=== PATIENT | male | born 1945 | race Caucasian/White ===

== ENCOUNTER 2016-05-22 12:21 | Outpatient (CLI) | payer BC ==
[2016-05-22 14:28] LABS: Anion Gap 16 mmol/L (10-20); BUN (Urea Nitrogen) 32 mg/dL (8.4-25.7); Calc. Creatinine Clearance 0 mL/min (70-130); Carbon Dioxide 24 mmol/L (23-31); Chloride 103 mmol/L (98-107); Estimated GFR-MDRD 27
[2016-05-22 15:24] LABS: Hemoglobin A1c 8.2 % (4.0-6.0)
== END 2016-05-22 12:22 ==
LOC: NAVSJIPCSP 12:21
PROVIDERS: ATTEND Internal Medicine
DX: I12.9 Hypertensive chronic kidney disease with stage 1 through stage 4 chronic kidney disease, or unspecified chronic kidney disease (principal); N18.4 Chronic kidney disease, stage 4 (severe); I48.91 Unspecified atrial fibrillation
CPT/HCPCS: 36415; 80048; 83036; 83880; 85610

== ENCOUNTER 2016-06-13 15:25 | Outpatient (CLI) | payer BC ==
[2016-06-13 15:55] LABS: Prothrombin Time 29.7 SEC (12.0-14.7)
== END 2016-06-13 15:26 | disposition home or self-care (01) ==
LOC: NAV LABSP 15:25
PROVIDERS: ATTEND Internal Medicine
DX: I13.0 Hypertensive heart and chronic kidney disease with heart failure and stage 1 through stage 4 chronic kidney disease, or unspecified chronic kidney disease (principal); I50.22 Chronic systolic (congestive) heart failure; Z79.01 Long term (current) use of anticoagulants
CPT/HCPCS: 85610; 85730

== ENCOUNTER 2016-07-11 13:59 | Outpatient (CLI) | payer BC ==
[2016-07-11 14:45] LABS: PTT 36.7 SEC (22.9-36.1); Prothrombin Time 27.8 SEC (12.0-14.7)
== END 2016-07-11 14:00 | disposition home or self-care (01) ==
LOC: NAV LABSP 13:59
PROVIDERS: ATTEND Internal Medicine
DX: I13.0 Hypertensive heart and chronic kidney disease with heart failure and stage 1 through stage 4 chronic kidney disease, or unspecified chronic kidney disease (principal); I50.22 Chronic systolic (congestive) heart failure
CPT/HCPCS: 85610; 85730

== ENCOUNTER 2016-07-24 13:28 | Outpatient (CLI) | payer BC ==
[2016-07-24 14:20] LABS: Hemoglobin A1c 8.3 % (4.0-6.0)
[2016-07-24 14:25] LABS: Prothrombin Time 23.4 SEC (12.0-14.7)
[2016-07-24 14:28] LABS: Anion Gap 15 mmol/L (10-20); BUN (Urea Nitrogen) 22 mg/dL (8.4-25.7); Calc. Creatinine Clearance 0 mL/min (70-130); Carbon Dioxide 28 mmol/L (23-31); Chloride 103 mmol/L (98-107); Estimated GFR-MDRD 29
== END 2016-07-24 13:29 | disposition home or self-care (01) ==
LOC: NAVSJIPCSP 13:28 → NAV LAB 13:29
PROVIDERS: ATTEND Internal Medicine
DX: I48.91 Unspecified atrial fibrillation (principal); I12.9 Hypertensive chronic kidney disease with stage 1 through stage 4 chronic kidney disease, or unspecified chronic kidney disease; N18.4 Chronic kidney disease, stage 4 (severe)
CPT/HCPCS: 80048; 83036; 83880; 85610

== ENCOUNTER 2016-08-30 11:48 | Outpatient (CLI) | payer BC ==
[2016-08-30 12:57] LABS: INR-International Normal Ratio 2.3; Prothrombin Time 26.4 SEC (12.0-14.7)
[2016-08-30 13:05] LABS: Anion Gap 17 mmol/L (10-20); BUN (Urea Nitrogen) 31 mg/dL (8.4-25.7); Calc. Creatinine Clearance 0 mL/min (70-130); Calcium 8.9 mg/dL (7.8-10.44); Carbon Dioxide 24 mmol/L (23-31); Chloride 105 mmol/L (98-107); Estimated GFR-MDRD 27; Glucose 200 mg/dL (83-110); Potassium 4.8 mmol/L (3.5-5.1); Sodium 141 mmol/L (136-145)
== END 2016-08-30 11:49 | disposition home or self-care (01) ==
LOC: NAVSJIPCSP 11:48
PROVIDERS: ATTEND Internal Medicine
DX: E11.22 Type 2 diabetes mellitus with diabetic chronic kidney disease (principal); N18.4 Chronic kidney disease, stage 4 (severe); I48.91 Unspecified atrial fibrillation; K21.9 Gastro-esophageal reflux disease without esophagitis
CPT/HCPCS: 36415; 80048; 83036; 85610

== ENCOUNTER 2016-09-20 12:29 | Outpatient (CLI) | payer BC ==
[2016-09-20 13:22] LABS: INR-International Normal Ratio 2.2; Prothrombin Time 25.5 SEC (12.0-14.7)
== END 2016-09-20 12:30 | disposition home or self-care (01) ==
LOC: NAV LAB 12:29
PROVIDERS: ATTEND Internal Medicine
DX: I48.91 Unspecified atrial fibrillation (principal)
CPT/HCPCS: 36415; 85610

== ENCOUNTER 2016-11-28 13:34 | Outpatient (CLI) | payer MEDICARE, BC ==
[2016-11-28 14:04] LABS: INR-International Normal Ratio 2.7
[2016-11-28 14:11] LABS: Anion Gap 17 mmol/L (10-20); BUN (Urea Nitrogen) 25 mg/dL (8.4-25.7); Calc. Creatinine Clearance 0 mL/min (70-130); Calcium 8.9 mg/dL (7.8-10.44); Carbon Dioxide 26 mmol/L (23-31); Chloride 100 mmol/L (98-107); Estimated GFR-MDRD 33; Glucose 226 mg/dL (83-110); Potassium 4.8 mmol/L (3.5-5.1); Sodium 138 mmol/L (136-145)
--- NOTE | 2016-11-28 16:14 | RAD ---
PA AND LATERAL CHEST: Date: 11-28-16 History: Atrial fibrillation. FINDINGS: Compared to study on 08-04-15. There is a multi-lead left subclavian AICD device again noted in place, again with transthoracic wendy d seen laterally. Cardiac silhouette remains enlarged. Pulmonary vasculature is within normal limits . Lungs remain clear. There has been no interval change when compared to the prior exam. IMPRESSION: No acute cardiopulmonary process. POS: BRET
== END 2016-11-28 13:35 | disposition home or self-care (01) ==
LOC: NAV RAD 13:34
PROVIDERS: ATTEND Internal Medicine
DX: I48.91 Unspecified atrial fibrillation (principal); N18.4 Chronic kidney disease, stage 4 (severe)
CPT/HCPCS: 36415; 71020; 80048; 83880; 85610

== ENCOUNTER 2017-01-24 11:22 | Outpatient (CLI) | payer BC, MEDICARE ==
[2017-01-24 12:37] LABS: Hemoglobin A1c 8.6 % (4.0-6.0)
[2017-01-24 12:59] LABS: Anion Gap 17 mmol/L (10-20); BUN (Urea Nitrogen) 25 mg/dL (8.4-25.7); Calc. Creatinine Clearance 0 mL/min (70-130); Calcium 8.8 mg/dL (7.8-10.44); Carbon Dioxide 25 mmol/L (23-31); Chloride 102 mmol/L (98-107); Estimated GFR-MDRD 33; Glucose 281 mg/dL (83-110); Potassium 4.9 mmol/L (3.5-5.1); Sodium 139 mmol/L (136-145)
== END 2017-01-24 11:23 | disposition home or self-care (01) ==
LOC: NAVSJIPCSP 11:22
PROVIDERS: ATTEND Internal Medicine
DX: E11.22 Type 2 diabetes mellitus with diabetic chronic kidney disease (principal); N18.4 Chronic kidney disease, stage 4 (severe); I48.91 Unspecified atrial fibrillation; I50.22 Chronic systolic (congestive) heart failure
CPT/HCPCS: 36415; 80048; 83036; 83880

== ENCOUNTER 2017-09-30 17:52 | Inpatient (IN) | payer MEDICARE, BC ==
[2017-09-30] MEDS ORDERED: Acetaminophen 325 MG TAB PO PRN (20:20)
[2017-09-30] MEDS ORDERED: Furosemide 40 MG TAB PO SCH (21:00)
[2017-09-30] MEDS ORDERED: Insulin Glargine 100 UNIT/ML 3 ML PEN SQ SCH (21:00)
[2017-09-30] MEDS ORDERED: Warfarin Sodium 3 MG TAB PO SCH (21:15)
[2017-09-30] MEDS: Ferrous Sulfate 325 MG TAB PO SCH (21:18)
[2017-09-30] MEDS: Simvastatin 40 MG TAB PO SCH (21:18)
[2017-09-30] MEDS: Carvedilol 3.125 MG TAB PO SCH (21:18)
[2017-09-30] MEDS ORDERED: Mometasone/Formoterol 60 PUFF AER INH SCH (22:00)
[2017-09-30] MEDS ORDERED: Levemir Flexpen 100 UNITS/ML PEN SC SCH (22:00)
[2017-10-01] MEDS: traMADol HCl 50 MG TAB PO PRN (03:06)
[2017-10-01 05:22] LABS: #Basophils 0.1 thou/uL (0.0-0.2); #Eosinphils 0.3 thou/uL (0.0-0.7); #Lymphocytes 1.3 thou/uL (1.20-3.40); #Monocytes 1.3 thou/uL (0.11-0.59); #Neutrophils 7.2 thou/uL (1.40-6.50); %Basophils 0.6 % (0.0-1.0); %Eosinophils 2.5 % (0.0-10.0); %Monocytes 12.7 % (0.0-10.0); %Neutrophils 71.2 % (42.0-75.0); Hemoglobin 8.4 g/dL (14.0-18.0); Mean Corpuscular Hemoglobin 28.6 pg (27.0-31.0); Mean Corpuscular Volume 92.2 fl (80.0-94.0); Platelet Count 260 thou/uL (130-400); RBC Distribution Width 17.1 % (11.5-14.5); Red Blood Cell (RBC) Count 2.95 mill/uL (4.70-6.10); White Blood Cell (WBC) Count 10.1 thou/uL (4.8-10.8)
[2017-10-01 05:31] LABS: INR-International Normal Ratio 1.9; Prothrombin Time 22.5 SEC (12.0-14.7)
[2017-10-01 05:41] LABS: ALT (SGPT) 11 U/L (8-55); AST (SGOT) 10 U/L (5-34); Alkaline Phosphatase 87 U/L (40-150); Anion Gap 12 mmol/L (10-20); BUN (Urea Nitrogen) 38 mg/dL (8.4-25.7); Bilirubin, Total 1.7 mg/dL (0.2-1.2); Calc. Creatinine Clearance 58 mL/min (70-130); Calcium 8.7 mg/dL (7.8-10.44); Carbon Dioxide 33 mmol/L (23-31); Chloride 90 mmol/L (98-107); Estimated GFR-MDRD 39; Globulin 2.5 g/dL (2.4-3.5); Glucose 178 mg/dL (83-110); Potassium 4.6 mmol/L (3.5-5.1); Protein, Total 5.5 g/dL (5.8-8.1); Sodium 130 mmol/L (136-145)
[2017-10-01] MEDS: Mometasone/Formoterol 60 PUFF AER INH SCH ×2 (06:20→18:20)
[2017-10-01] MEDS ORDERED: Dextrose 50% Abboject 50 ML SYRINGE SLOW IVP PRN (06:24)
[2017-10-01] MEDS ORDERED: Dextrose 5% in Water 1,000 ML IV PRN (06:24)
[2017-10-01] MEDS ORDERED: Bisacodyl 10 MG SUPP PR PRN (07:14)
[2017-10-01] MEDS: Furosemide 40 MG TAB PO SCH ×2 (09:00→13:32)
[2017-10-01] MEDS: Polyethylene Glycol 3350 17 GM Packet PO SCH (09:00)
[2017-10-01] MEDS: Ferrous Sulfate 325 MG TAB PO SCH ×2 (09:00→20:23)
[2017-10-01] MEDS: Docusate Calcium (SURFAK) 240 MG CAP PO SCH ×2 (09:00→20:23)
[2017-10-01] MEDS: Carvedilol 3.125 MG TAB PO SCH ×2 (09:00→20:22)
[2017-10-01] MEDS: Lisinopril 5 MG TAB PO SCH (09:01)
[2017-10-01] MEDS: Amiodarone 200 MG TAB PO SCH (09:01)
--- NOTE | 2017-10-01 11:36 | HP ---
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 He has been poor ly controlled as mentioned above at home secondary to noncompliance to his salt and sugar intake and questionably to his medication. He subsequently has developed a recurrent admission to the hospital for exacerbation of congestive heart failure, and most recently, was admitted to [facility] on 09/23/2017 with severe weakness and shortness of breath, was found to be in signific ant heart failure, was seen by Cardiology after being admitted to the residency program, was felt to require possibly a benefit from resynchronization of his cardiac rhythm. He does have an ICD in [facility], and in fact, this was discharged prior to this admission for the first time, found to be due to ve ntricular tachycardia when evaluated by the executive search consultant. He was therefore started back on tx s amiodarone, but then recommended to have AV node ablation and a biventricular pacemaker placed for resynchronization. This was done and he initially felt slightly better. He was ambulating in the [facility], but then did have an exacerbation of his CHF, requiring increased Lasix. He, therefore, has felt that he is not stable to be discharged home and the student financial aid manager has agreed, and therefore, he has b een transferred to [facility] SN[facility] for continued PT and OT while monitoring his cardiac rehabil itation. He did have a complication of acute drop in his hemoglobin after his catheterization, but d id not show any hematomas on femoral ultrasound. Occult blood in his stool was not done as far as I can see because of constipation. His poorly controlled diabetes was aggressively treated with aggres sive sliding scale plus increase in his routine insulin and he was discharged back to the [facility] skilled unit on 70 units of Lantus nightly, lisinopril two and a half daily, simvastatin 80 ni ghtly, aspirin 81 daily, warfarin 3 mg daily, carvedilol 3.125 twice daily, amiodarone 200 daily, nichelle asif sulfate 324 mg twice daily, Symbicort inhaler 80/4.5 one puff twice daily, handheld nebulizer wi th DuoNeb 4 times daily, Protonix 40 daily, and furosemide 40 mg twice daily. PAST MEDICAL HISTORY: As mentioned above is remarkable for the above-mentioned ischemic cardiomyopat hy, subsequent congestive heart failure, poorly controlled diabetes. He has had a myocardial infarct ion greater than 10 years ago with subsequent development of his systolic heart failure. He has not had coronary bypass, but did have stents. He has the above-mentioned history of diabetes and hyperte nsion, but also has COPD and has continued to smoke. Hyperlipidemia. PAST SURGICAL HISTORY: Positive for appendectomy, the above-mentioned defibrillator placement, bilat eral cataract surgery. SOCIAL HISTORY: He lives with his of many years. He is a nondrinker, but does smoke a pack a d ay and has for 60 years. FAMILY MEDICAL HISTORY: Noncontributory. REVIEW OF SYSTEMS: HEENT: Denies any headaches, dizziness, change in vision or hearing, hoarseness, or dysphagia. Pulmonary: Denies cough or sputum production. He has had pneumonia in the past, but has no wheezing or shortness of breath at rest at this time. Cardiovascular: See history of presen t illness. He has no chest pain at this time. No palpitations, but did not have any palpitations pr ior to the syncopal episode of ventricular tachycardia prior to this admission. He does have 2-meri w orthopnea. Does have only 1-2+ edema. He has no claudication. Gastrointestinal: He denies nause a, vomiting, or diarrhea. He had some constipation. He has had no melena. Genitourinary: Denies d ysuria, hematuria, nocturia. Musculoskeletal: Denies stiffness or swelling in his joints. Extremit ies: Does have stage 2 decubitus on his heels, being followed by Wound. Neurologic: He denies loca lized numbness or tingling in his arms or extremities. Has had the above-mentioned syncopal episode, but no previous episodes prior to this. Psychological: Denies anxiety and depression. PHYSICAL EXAMINATION: VITAL SIGNS: At this time, show him to have temperature 97.3, pulse 69, respirations 20, O2 sats 96% on 1 liter, was 90% on room air prior to discharge. Blood pressure is 110/57. HEENT: Pupils are equal, round, and reactive to light and accommodation. Sclerae are pale, Conjunct ivae pale. Oral mucous membranes well hydrated. NECK: Supple, no nodes or masses. JVP is not elevated. LUNGS: Show decreased breath sounds in the bases. No rales or rhonchi. CARDIAC EXAMINATION: Regular rhythm. Has an S4. Pacemaker is in place. No murmurs. ABDOMEN: Soft, nontender with no masses or organomegaly. SKIN/EXTREMITIES: Show trace to 1+ edema. No clubbing or cyanosis. There are 2 decubitus on the le ft foot, which are bandaged. NEUROLOGICAL: Cranial nerves intact. Deep tendon reflexes 2+ equal, absent Babinski. LABORATORY DATA: Shows white count 10,100, hematocrit 27, hemoglobin 8.4. PT 22.5, INR 1.9. Sodium 130, potassium 4.6, chloride 90, bicarbonate 33, BUN 38, creatinine 1.72. Accu-Cheks range from 88- 54, albumin is 3.0, globulin 2.5. ASSESSMENT: A 72-year-old white male with, 1. History of ischemic cardiomyopathy with recent exacerbation of congestive heart failure and an ep isode of ventricular tachycardia with discharge of his defibrillator. He has had AV john ablation a nd biventricular pacemaker placed for recent presentation and has been diuresed, but is still very we ak and has had an episode recently of an exacerbation of sort of congestive heart failure prior to [facility], and therefore was transferred to the [facility] unit for continued PT/OT, as he is barely ab le to walk several steps while monitoring his cardiac rehabilitation. He will be continued on his me dications of amiodarone 200 daily, carvedilol 3.125 twice daily, furosemide 40 twice daily, lisinopri l 2-1/2 daily and warfarin 3 mg daily for underlying atrial fibrillation. 2. Atrial fibrillation with rate control, AV john ablation and pacemaker and anticoagulation with w arfarin. 3. Type 2 diabetes, poorly controlled recently, now on increased dose of Lantus and sliding scale, a nd we will attempt to wean off sliding scale, maintain on routine doses prior to discharge. 4. Coronary artery disease with no evidence of acute ischemia. This admission only demand ischemia and no intervention. 5. Severe deconditioning, in need of therapy and we will monitor closely during PT and OT. The travis ent is not to be intubated at his request and we will discuss again with family and patient. 6. Recurrent anemia. We will do stool guaiac. There is no significant hematoma post-catheterizatio n and maybe underlying GI bleeding.
[2017-10-01] MEDS: HumaLOG 300 UNITS/3 ML VIAL SC PRN ×2 (11:47→16:44)
--- NOTE | 2017-10-01 14:04 | RAD ---
AP CHEST: Date: 10-01-17 Comparison: 09-28-17 History: New onset shortness of breath, congestive heart failure. FINDINGS: There is a dual-lead intracardiac defibrillator. Cardiomegaly is seen. Pulmonary vascular congestion is seen. No significant interval change is seen since the previous exam from 09-28-17. IMPRESSION: Cardiomegaly and pulmonary vascular congestion. Findings compatible with congestive heart failure. POS: BRET
[2017-10-01] MEDS: Warfarin Sodium 3 MG TAB PO SCH (16:44)
[2017-10-01] MEDS: Simvastatin 40 MG TAB PO SCH (20:23)
[2017-10-01] MEDS: Levemir Flexpen 100 UNITS/ML PEN SC SCH (20:23)
[2017-10-02 05:35] LABS: INR-International Normal Ratio 2.3; Prothrombin Time 25.8 SEC (12.0-14.7)
[2017-10-02] MEDS: HumaLOG 300 UNITS/3 ML VIAL SC PRN ×3 (06:03→17:08)
[2017-10-02] MEDS: Mometasone/Formoterol 60 PUFF AER INH SCH ×2 (06:03→17:56)
[2017-10-02] MEDS: Docusate Calcium (SURFAK) 240 MG CAP PO SCH ×2 (09:06→20:33)
[2017-10-02] MEDS: Lisinopril 5 MG TAB PO SCH (09:06)
[2017-10-02] MEDS: Carvedilol 3.125 MG TAB PO SCH ×2 (09:06→20:33)
[2017-10-02] MEDS: Ferrous Sulfate 325 MG TAB PO SCH ×2 (09:06→20:33)
[2017-10-02] MEDS: Amiodarone 200 MG TAB PO SCH (09:06)
[2017-10-02] MEDS: Furosemide 40 MG TAB PO SCH ×2 (09:06→14:35)
[2017-10-02] MEDS: Polyethylene Glycol 3350 17 GM Packet PO SCH (09:09)
[2017-10-02] MEDS: traMADol HCl 50 MG TAB PO PRN ×2 (09:14→15:40)
[2017-10-02] MEDS: Warfarin Sodium 3 MG TAB PO SCH (17:07)
[2017-10-02] MEDS: Levemir Flexpen 100 UNITS/ML PEN SC SCH (20:33)
[2017-10-02] MEDS: Simvastatin 40 MG TAB PO SCH (20:33)
[2017-10-03] MEDS: traMADol HCl 50 MG TAB PO PRN ×2 (00:08→09:08)
[2017-10-03 05:58] LABS: Hemoglobin 8.6 g/dL (14.0-18.0); Platelet Count 248 thou/uL (130-400)
[2017-10-03 06:01] LABS: INR-International Normal Ratio 2.3; Prothrombin Time 26.4 SEC (12.0-14.7)
[2017-10-03] MEDS: Mometasone/Formoterol 60 PUFF AER INH SCH ×2 (06:13→17:48)
[2017-10-03] MEDS: Amiodarone 200 MG TAB PO SCH (09:05)
[2017-10-03] MEDS: Carvedilol 3.125 MG TAB PO SCH ×2 (09:05→17:48)
[2017-10-03] MEDS: Docusate Calcium (SURFAK) 240 MG CAP PO SCH ×2 (09:05→20:34)
[2017-10-03] MEDS: Lisinopril 5 MG TAB PO SCH (09:06)
[2017-10-03] MEDS: Ferrous Sulfate 325 MG TAB PO SCH ×2 (09:06→17:47)
[2017-10-03] MEDS: Furosemide 40 MG TAB PO SCH ×2 (09:06→14:32)
[2017-10-03] MEDS: Mupirocin 2% Ointment 22 GM Tube TOP SCH ×3 (09:07→20:34)
[2017-10-03] MEDS: Polyethylene Glycol 3350 17 GM Packet PO SCH (09:08)
[2017-10-03] MEDS: Warfarin Sodium 3 MG TAB PO SCH (17:47)
[2017-10-03] MEDS: HumaLOG 300 UNITS/3 ML VIAL SC PRN (17:48)
[2017-10-03] MEDS: Levemir Flexpen 100 UNITS/ML PEN SC SCH (20:34)
[2017-10-03] MEDS: Simvastatin 40 MG TAB PO SCH (20:34)
[2017-10-04 05:20] LABS: INR-International Normal Ratio 2.5; Prothrombin Time 28.1 SEC (12.0-14.7)
[2017-10-04 05:27] LABS: Anion Gap 16 mmol/L (10-20); BUN (Urea Nitrogen) 60 mg/dL (8.4-25.7); Calc. Creatinine Clearance 45 mL/min (70-130); Calcium 8.7 mg/dL (7.8-10.44); Carbon Dioxide 31 mmol/L (23-31); Chloride 97 mmol/L (98-107); Estimated GFR-MDRD 30; Glucose 136 mg/dL (83-110); Potassium 5.4 mmol/L (3.5-5.1); Sodium 139 mmol/L (136-145)
[2017-10-04] MEDS: Mometasone/Formoterol 60 PUFF AER INH SCH ×2 (05:38→18:36)
[2017-10-04] MEDS: Docusate Calcium (SURFAK) 240 MG CAP PO SCH ×2 (08:21→20:54)
[2017-10-04] MEDS: Amiodarone 200 MG TAB PO SCH (08:21)
[2017-10-04] MEDS: Ferrous Sulfate 325 MG TAB PO SCH ×2 (08:23→18:33)
[2017-10-04] MEDS: Carvedilol 3.125 MG TAB PO SCH ×2 (08:23→18:33)
[2017-10-04] MEDS: Lisinopril 5 MG TAB PO SCH (08:24)
[2017-10-04] MEDS: Polyethylene Glycol 3350 17 GM Packet PO SCH (08:24)
[2017-10-04] MEDS: Mupirocin 2% Ointment 22 GM Tube TOP SCH ×3 (09:00→20:54)
[2017-10-04] MEDS: Furosemide 40 MG TAB PO SCH (11:59)
[2017-10-04] MEDS: Acetaminophen 325 MG TAB PO PRN (11:59)
[2017-10-04] MEDS: traMADol HCl 50 MG TAB PO PRN (11:59)
[2017-10-04] MEDS: Stress 600 With Zinc 1 TAB PO SCH (11:59)
[2017-10-04] MEDS: Ascorbic Acid 500 mg Chewable Tablet PO SCH (12:00)
[2017-10-04] MEDS: Warfarin Sodium 3 MG TAB PO SCH (18:34)
[2017-10-04] MEDS: Levemir Flexpen 100 UNITS/ML PEN SC SCH (20:52)
[2017-10-04] MEDS: Simvastatin 40 MG TAB PO SCH (20:55)
[2017-10-05 05:53] LABS: INR-International Normal Ratio 2.9; Prothrombin Time 31.3 SEC (12.0-14.7)
[2017-10-05 05:54] LABS: Hemoglobin 8.6 g/dL (14.0-18.0); Platelet Count 225 thou/uL (130-400)
[2017-10-05] MEDS: Mometasone/Formoterol 60 PUFF AER INH SCH ×2 (05:54→18:59)
[2017-10-05] MEDS: Ascorbic Acid 500 mg Chewable Tablet PO SCH (08:30)
[2017-10-05] MEDS: Stress 600 With Zinc 1 TAB PO SCH (08:30)
[2017-10-05] MEDS: Lisinopril 5 MG TAB PO SCH (08:30)
[2017-10-05] MEDS: Amiodarone 200 MG TAB PO SCH (08:30)
[2017-10-05] MEDS: Docusate Calcium (SURFAK) 240 MG CAP PO SCH ×2 (08:30→20:10)
[2017-10-05] MEDS: Carvedilol 3.125 MG TAB PO SCH ×2 (08:31→18:32)
[2017-10-05] MEDS: Ferrous Sulfate 325 MG TAB PO SCH ×2 (08:31→18:32)
[2017-10-05] MEDS: Polyethylene Glycol 3350 17 GM Packet PO SCH (08:31)
[2017-10-05] MEDS: Furosemide 40 MG TAB PO SCH (08:31)
[2017-10-05] MEDS: Mupirocin 2% Ointment 22 GM Tube TOP SCH ×3 (08:31→20:11)
[2017-10-05 09:34] LABS: #Basophils 0.1 thou/uL (0.0-0.2); #Eosinphils 0.2 thou/uL (0.0-0.7); #Lymphocytes 0.8 thou/uL (1.20-3.40); #Monocytes 1.2 thou/uL (0.11-0.59); #Neutrophils 15.7 thou/uL (1.40-6.50); %Basophils 0.4 % (0.0-1.0); %Eosinophils 1.3 % (0.0-10.0); %Lymphocytes 4.5 % (21.0-51.0); %Monocytes 6.5 % (0.0-10.0); %Neutrophils 87.2 % (42.0-75.0); Hemoglobin 8.5 g/dL (14.0-18.0); Mean Corpuscular HGB CONC 30.9 g/dL (32.0-36.0); Mean Corpuscular Volume 94.1 fl (80.0-94.0); Mean Platelet Volume 5.4 fL (7.4-10.4); Platelet Count 233 thou/uL (130-400); RBC Distribution Width 16.9 % (11.5-14.5); Red Blood Cell (RBC) Count 2.94 mill/uL (4.70-6.10)
[2017-10-05 09:50] LABS: ALT (SGPT) 18 U/L (8-55); AST (SGOT) 20 U/L (5-34); Albumin 3.1 g/dL (3.4-4.8); Alkaline Phosphatase 90 U/L (40-150); Anion Gap 12 mmol/L (10-20); BUN (Urea Nitrogen) 56 mg/dL (8.4-25.7); Bilirubin, Total 1.3 mg/dL (0.2-1.2); Calc. Creatinine Clearance 57 mL/min (70-130); Calcium 8.7 mg/dL (7.8-10.44); Carbon Dioxide 30 mmol/L (23-31); Chloride 99 mmol/L (98-107); Estimated GFR-MDRD 39; Globulin 2.9 g/dL (2.4-3.5); Glucose 147 mg/dL (83-110); Potassium 4.3 mmol/L (3.5-5.1); Sodium 137 mmol/L (136-145)
--- NOTE | 2017-10-05 10:51 | RAD ---
PORTABLE CHEST: Date: 10/05/17 COMPARISON: 10/01/17 study. HISTORY: Shortness of breath. FINDINGS: Heart size is enlarged with postop sternotomy changes. Some mild vascular engorgement, but no overt i nterstitial edema. There has been development of some atelectatic changes in both lung bases. IMPRESSION: 1. Cardiomegaly with mild vascular prominence, which may be baseline for this patient. No overt inte rstitial edema. 2. Linear atelectatic changes developing in the lung bases. POS: EPIFANIO
--- NOTE | 2017-10-05 10:52 | PRG ---
DATE OF SERVICE: 10/02/2017 SUBJECTIVE: The patient feels very weak. No shortness of breath at rest. No chest pain, no nausea and vomiting or palpitations. OBJECTIVE: VITAL SIGNS: Blood pressure is 108/53, O2 sats 95% on 1.5 liters, pulse is 70. LUNGS: Show decreased breath sounds in the bases. CARDIAC: Shows regular rhythm. Chest x-ray showed pulmonary vascular congestion. SKIN AND EXTREMITIES: Showed 1-2+ edema. Patient was unable to do much therapy because of weakness and shortness of breath. LABORATORY DATA: Showed the patient with BUN of 38, creatinine 1.72. ASSESSMENT AND PLAN: 1. Systolic heart failure with increased pulmonary congestion. We will restart Lasix 40 daily. Mon itor closely for renal dysfunction and lower blood pressure. 2. Type 2 diabetes with poor control on increasing doses of insulin and we will continue to monitor and titrate closely and adjust insulin dose. 3. Severe deconditioning and we will slowly start physical therapy and cardio therapy while monitori ng closely.
--- NOTE | 2017-10-05 11:05 | PRG ---
DATE OF SERVICE: 10/04/2017 SUBJECTIVE: The patient feels much better, cooperating with therapy. No complaints of weakness and fatigue at rest and feels he is getting stronger. OBJECTIVE: VITAL SIGNS: His temperature is 98, pulse 72, respirations 18, O2 sats 95% on 1.5 liters, blood pres sure 104/56. LUNGS: Show increased breath sounds in the bases. CARDIAC EXAMINATION: Shows regular rhythm, S4, S3. PMI in the fifth intercostal space 1 cm left mid clavicular line. SKIN AND EXTREMITIES: Showed no edema. LABORATORY DATA: However, showed creatinine up to 2.15, sodium 139, potassium 5.4, chloride 97, bica rbonate 31, BUN is 60, calcium 8.7. ASSESSMENT: 1. Improving diastolic heart failure and pulmonary congestion, but with increasing cardiorenal syndr ome. 2. Persistent hyperglycemia in the evening, despite good control of a.m. hypoglycemia. PLAN: 1. Start Humalog 5 units at lunch daily. Continue Accu-Cheks per discontinue sliding scale. 2. Continue furosemide and repeat base met profile in the a.m. and may need to decrease or discontin ue furosemide dose if renal function continues to worsen. 3. Continue PT, OT.
--- NOTE | 2017-10-05 11:05 | PRG ---
DATE OF SERVICE: 10/03/2017 SUBJECTIVE: The patient feels better with decreased shortness of breath, increased strength and coop erating better with therapy. OBJECTIVE: VITAL SIGNS: Temperature 98, pulse 70, respirations 20, O2 sats 95% on room air, blood pressure 99/5 1. Accu-Cheks show normal in the morning at 82, but still up to 261-259 in the afternoon. SKIN AND EXTREMITIES: Showed no edema. LUNGS: Show decreased breath sounds in the bases. CARDIAC: Shows S4, S3. PMI in the fifth intercostal space, 1 cm left midclavicular line. ASSESSMENT: 1. Systolic heart failure secondary to ischemic cardiomyopathy, slowly improving on oral Lasix. 2. Uncontrolled diabetes, on Levemir and sliding scale. 3. Acute on chronic renal failure secondary to cardiorenal syndrome, appears to be stable on increas ed Lasix. We will check a base met profile in the morning. PLAN: Continue PT, OT. Check base met profile. Continue Lasix 40 daily. Monitor Accu-Cheks and ma y need to start routine Humalog.
[2017-10-05] MEDS: Acetaminophen 325 MG TAB PO PRN (13:27)
[2017-10-05] MEDS: traMADol HCl 50 MG TAB PO PRN (13:27)
[2017-10-05] MEDS: HumaLOG 300 UNITS/3 ML VIAL SC SCH (13:27)
[2017-10-05 15:59] LABS: Bilirubin Negative (Negative); Blood, Urine Large (Negative); Clarity Clear (Clear); Glucose, Urine (Dipstick) Negative (Negative); Leukocyte Moderate (Negative); Nitrite Negative (Negative); Protein, Urine (Dipstick) Trace mg/dL (Neg-Trace); pH, Urine 5.5 (5.0-9.0)
[2017-10-05 16:00] LABS: Bacteria/HPF 2+ HPF (None Seen); Squamous Epithelial 0-3 HPF (0-3)
[2017-10-05] MEDS: Warfarin Sodium 3 MG TAB PO SCH (18:32)
[2017-10-05] MEDS: Simvastatin 40 MG TAB PO SCH (20:10)
[2017-10-05] MEDS: Amoxicillin/Potassium Clav 875 MG TAB PO SCH (20:11)
[2017-10-05] MEDS: Levemir Flexpen 100 UNITS/ML PEN SC SCH (20:14)
[2017-10-06] MEDS: traMADol HCl 50 MG TAB PO PRN ×2 (00:03→20:07)
[2017-10-06] MEDS: Acetaminophen 325 MG TAB PO PRN ×2 (00:04→20:07)
--- NOTE | 2017-10-06 01:20 | PRG ---
DATE OF SERVICE: 10/05/2017 SUBJECTIVE: The patient feels about the same with no shortness of breath at rest, but very weak and short of breath on exertion. No chest pain. He has been eating well, but has not been getting out o f the bed. OBJECTIVE: VITAL SIGNS: Blood pressure is 117/55, temperature is 99, pulse 72, respirations 21, and O2 sats 94% on 1.5 liters. LABORATORY DATA: Shows white count up to 18,000, hematocrit 27, hemoglobin 8.5. Recent chest x-ray today showed no evidence of infiltrates. Accu-Cheks show range from 102-172 today, good control. BN P still had elevated, however 700.5. Urinalysis is normal, 710 white cells and 1120 red cells. ASSESSMENT: 1. New onset of leukocytosis, possibly due to urinary tract infection and will culture, start on ant ibiotics with Bactrim DS twice daily, now with amoxicillin 500 mg 3 times daily until sensitivity ret urn causing interaction with heart medicines with sulfa and quinolone. 2. Atrial fibrillation with adequate anticoagulation. PT/INR range from 2.3 to 2.9 mg daily. We wi ll continue that. 3. Type 2 diabetes, controlled with increase Levemir in noon, Humalog and we will continue this dose .
[2017-10-06 05:45] LABS: INR-International Normal Ratio 2.9; Prothrombin Time 31.7 SEC (12.0-14.7)
[2017-10-06] MEDS: Mometasone/Formoterol 60 PUFF AER INH SCH ×2 (05:56→18:41)
[2017-10-06] MEDS: HumaLOG 300 UNITS/3 ML VIAL SC SCH (09:05)
[2017-10-06] MEDS: Amoxicillin/Potassium Clav 875 MG TAB PO SCH ×2 (09:05→20:08)
[2017-10-06] MEDS: Lisinopril 5 MG TAB PO SCH (09:05)
[2017-10-06] MEDS: Ascorbic Acid 500 mg Chewable Tablet PO SCH (09:06)
[2017-10-06] MEDS: Furosemide 40 MG TAB PO SCH (09:06)
[2017-10-06] MEDS: Stress 600 With Zinc 1 TAB PO SCH (09:07)
[2017-10-06] MEDS: Amiodarone 200 MG TAB PO SCH (09:07)
[2017-10-06] MEDS: Ferrous Sulfate 325 MG TAB PO SCH ×2 (09:07→18:39)
[2017-10-06] MEDS: Carvedilol 3.125 MG TAB PO SCH ×2 (09:08→18:39)
[2017-10-06] MEDS: Mupirocin 2% Ointment 22 GM Tube TOP SCH ×3 (09:08→20:09)
[2017-10-06] MEDS: Docusate Calcium (SURFAK) 240 MG CAP PO SCH ×2 (09:08→20:08)
[2017-10-06] MEDS: Polyethylene Glycol 3350 17 GM Packet PO SCH (09:08)
[2017-10-06] MEDS: Warfarin Sodium 3 MG TAB PO SCH (18:40)
--- NOTE | 2017-10-06 20:05 | PRG ---
DATE OF SERVICE: 10/06/2017 SUBJECTIVE: The patient lying in bed, states he feels weak and tired. No energy, but no shortness o f breath at rest, and unable to attend groups and maintain ADLs. OBJECTIVE: Show temperature is 97, pulse 73, respirations 22, O2 sats 93% on 1.5 liters, blood press ure 156/92. LABORATORY DATA: Show white count up to 18,000 yesterday with hematocrit 27, hemoglobin 8.5. Urinal ysis showed 11-20 red cells, 7-10 white cells, 2+ bacteria. PT/INR was 31 and 2.9. Chest x-ray show ed no acute infiltrates. Blood culture showing MRSA sensitive to sulfa. Urine culture is still pend ing. ASSESSMENT: 1. Class 4 congestive heart failure, appears to be stable at rest, but with decreased exercise iris ance. 2. Urinary tract infection, on amoxicillin. Await results of culture. 3. Type 2 diabetes with improved control. Accu-Cheks ranged from 102-207. 4. Chronic kidney disease, stage 3, stable. 5. Ischemic cardiomyopathy with history of ventricular tachycardia, status post automated implantabl e cardioverter defibrillator and history of atrioventricular john ablation and placement of biventri cular pacemaker. PLAN: 1. Continue PT, OT. Continue gentle diuresis with furosemide 40 daily. Continue diabetic control w ith Levemir at night and Humalog at lunch. Continue urinary tract infection treatment with amoxicill in, but we will also add doxycycline for possible MRSA infection of the foot. We withhold quinolones or sulfa drugs as necessary because of interaction with warfarin. 2. Adequate anticoagulation for underlying atrial fibrillation with PT/INR of 2.9 on warfarin 3 mg d aily.
[2017-10-06] MEDS: Levemir Flexpen 100 UNITS/ML PEN SC SCH (20:07)
[2017-10-06] MEDS: Doxycycline 100 MG CAP PO SCH (20:08)
[2017-10-06] MEDS: Simvastatin 40 MG TAB PO SCH (20:08)
[2017-10-07] MEDS: traMADol HCl 50 MG TAB PO PRN ×2 (03:02→20:32)
[2017-10-07] MEDS: Acetaminophen 325 MG TAB PO PRN ×2 (03:05→20:31)
[2017-10-07] MEDS: Mometasone/Formoterol 60 PUFF AER INH SCH ×2 (05:36→18:03)
[2017-10-07 05:43] LABS: Prothrombin Time 32.1 SEC (12.0-14.7)
[2017-10-07 05:57] LABS: Hemoglobin 8.7 g/dL (14.0-18.0); Platelet Count 278 thou/uL (130-400)
[2017-10-07 08:49] LABS: Red Blood Cell (RBC) Count 3.07 mill/uL (4.70-6.10); White Blood Cell (WBC) Count 11.9 thou/uL (4.8-10.8)
[2017-10-07 08:50] LABS: %Lymphocytes 6.9 % (21.0-51.0); %Monocytes 8.7 % (0.0-10.0); %Neutrophils 87.4 % (42.0-75.0); Hemoglobin 8.7 g/dL (14.0-18.0); Mean Corpuscular HGB CONC 30.1 g/dL (32.0-36.0); Mean Corpuscular Hemoglobin 28.3 pg (27.0-31.0); Mean Platelet Volume 6.3 fL (7.4-10.4); Platelet Count 278 thou/uL (130-400); RBC Distribution Width 16.3 % (11.5-14.5)
[2017-10-07 08:51] LABS: #Basophils 0.1 thou/uL (0.0-0.2); #Eosinphils 0.2 thou/uL (0.0-0.7); #Lymphocytes 0.8 thou/uL (1.20-3.40); #Neutrophils 9.7 thou/uL (1.40-6.50)
[2017-10-07] MEDS: HumaLOG 300 UNITS/3 ML VIAL SC SCH (08:51)
[2017-10-07] MEDS: Doxycycline 100 MG CAP PO SCH ×2 (08:53→20:27)
[2017-10-07] MEDS: Carvedilol 3.125 MG TAB PO SCH ×2 (08:53→16:51)
[2017-10-07] MEDS: Amiodarone 200 MG TAB PO SCH (08:53)
[2017-10-07] MEDS: Ferrous Sulfate 325 MG TAB PO SCH ×2 (08:53→16:51)
[2017-10-07] MEDS: Polyethylene Glycol 3350 17 GM Packet PO SCH (08:54)
[2017-10-07] MEDS: Docusate Calcium (SURFAK) 240 MG CAP PO SCH (08:54)
[2017-10-07] MEDS: Furosemide 40 MG TAB PO SCH (08:54)
[2017-10-07] MEDS: Ascorbic Acid 500 mg Chewable Tablet PO SCH (08:54)
[2017-10-07] MEDS: Stress 600 With Zinc 1 TAB PO SCH (08:54)
[2017-10-07] MEDS: Lisinopril 5 MG TAB PO SCH (08:55)
[2017-10-07] MEDS: Mupirocin 2% Ointment 22 GM Tube TOP SCH ×3 (08:57→20:29)
[2017-10-07 09:03] LABS: ALT (SGPT) 19 U/L (8-55); AST (SGOT) 17 U/L (5-34); Alkaline Phosphatase 93 U/L (40-150); Anion Gap 15 mmol/L (10-20); BUN (Urea Nitrogen) 48 mg/dL (8.4-25.7); Bilirubin, Total 1.1 mg/dL (0.2-1.2); Calc. Creatinine Clearance 63 mL/min (70-130); Calcium 8.7 mg/dL (7.8-10.44); Carbon Dioxide 28 mmol/L (23-31); Chloride 101 mmol/L (98-107); Estimated GFR-MDRD 44; Globulin 2.9 g/dL (2.4-3.5); Glucose 63 mg/dL (83-110); Potassium 4.9 mmol/L (3.5-5.1); Protein, Total 5.9 g/dL (5.8-8.1); Sodium 139 mmol/L (136-145)
[2017-10-07] MEDS: Amoxicillin/Potassium Clav 875 MG TAB PO SCH ×2 (09:04→20:26)
[2017-10-07] MEDS: Warfarin Sodium 3 MG TAB PO SCH (16:52)
--- NOTE | 2017-10-07 16:56 | PRG ---
DATE OF SERVICE: 10/07/2017 SUBJECTIVE: The patient feels weak and has recently had explosive diarrhea, but is cooperating with therapy, having no chest pain or shortness of breath, have some persistent soreness in his left foot. OBJECTIVE: VITAL SIGNS: Shows blood pressure is 143/63, dropped to 110/56 on standing, O2 sats 95% on 1.5 liter s. LUNGS: Clear. CARDIAC: Examination shows regular rhythm. ABDOMEN: Soft, nontender. SKIN AND EXTREMITIES: Show diffuse ecchymoses. LABORATORY DATA: Laboratory shows white count down 11,900, hematocrit 28, hemoglobin 8. PT/INR is 3 2, 3 on warfarin. Sodium 139, potassium 4.9, chloride 101, bicarbonate 28, BUN 48, creatinine 1.56, which is improved from 2.15 previously. BNP, however, is increased to 810 from 700. Accu-Cheks impr vishal greatly to 75 and 83 this morning. ASSESSMENT: 1. Class 4 congestive heart failure, slowly improving. No symptoms at rest with symptoms on exertio n, but improving. 2. Urinary tract infection secondary to methicillin-resistant Staphylococcus aureus on culture today , on Bactrim-DS. 3. Type 2 diabetes, controlled to goal. 4. Chronic kidney disease stage 3, stable. 5. Methicillin-resistant Staphylococcus aureus infection of decubitus on toes, appear to be healing well. 6. Ischemic cardiomyopathy, status post AICD, plus also biventricular pacemaker after atrioventricul ar john ablation. PLAN: Continue furosemide 40 mg daily. Start spironolactone 25 mg daily. Repeat basic metabolic pr ofile in the a.m. Continue warfarin 3 mg daily. Check stool for Clostridium difficile. Discontinue docusate and check stool for occult blood.
[2017-10-07] MEDS: Simvastatin 40 MG TAB PO SCH (20:27)
[2017-10-07] MEDS: Levemir Flexpen 100 UNITS/ML PEN SC SCH (20:38)
[2017-10-07] MEDS: ALPRAZolam 0.25 MG TAB PO PRN (22:48)
[2017-10-08] MEDS: Mometasone/Formoterol 60 PUFF AER INH SCH ×2 (05:17→18:11)
[2017-10-08 06:12] LABS: INR-International Normal Ratio 3.3; Prothrombin Time 35.3 SEC (12.0-14.7)
[2017-10-08 06:20] LABS: Anion Gap 12 mmol/L (10-20); BUN (Urea Nitrogen) 44 mg/dL (8.4-25.7); Calc. Creatinine Clearance 63 mL/min (70-130); Calcium 8.7 mg/dL (7.8-10.44); Carbon Dioxide 29 mmol/L (23-31); Chloride 103 mmol/L (98-107); Estimated GFR-MDRD 44; Glucose 63 mg/dL (83-110); Potassium 4.4 mmol/L (3.5-5.1); Sodium 140 mmol/L (136-145)
[2017-10-08] MEDS: HumaLOG 300 UNITS/3 ML VIAL SC SCH (08:49)
[2017-10-08] MEDS: Carvedilol 3.125 MG TAB PO SCH ×2 (08:50→17:21)
[2017-10-08] MEDS: Amiodarone 200 MG TAB PO SCH (08:50)
[2017-10-08] MEDS: Spironolactone 25 MG TAB PO SCH (08:50)
[2017-10-08] MEDS: Ferrous Sulfate 325 MG TAB PO SCH ×2 (08:50→17:21)
[2017-10-08] MEDS: Furosemide 40 MG TAB PO SCH (08:51)
[2017-10-08] MEDS: Amoxicillin/Potassium Clav 875 MG TAB PO SCH ×2 (08:51→20:18)
[2017-10-08] MEDS: Doxycycline 100 MG CAP PO SCH ×2 (08:51→20:18)
[2017-10-08] MEDS: Lisinopril 5 MG TAB PO SCH (08:51)
[2017-10-08] MEDS: Ascorbic Acid 500 mg Chewable Tablet PO SCH (08:51)
[2017-10-08] MEDS: Stress 600 With Zinc 1 TAB PO SCH (08:52)
[2017-10-08] MEDS: Polyethylene Glycol 3350 17 GM Packet PO SCH (08:52)
[2017-10-08] MEDS: Mupirocin 2% Ointment 22 GM Tube TOP SCH ×3 (08:56→20:21)
[2017-10-08] MEDS: traMADol HCl 50 MG TAB PO PRN ×2 (14:00→23:07)
[2017-10-08] MEDS: ALPRAZolam 0.25 MG TAB PO PRN (20:17)
[2017-10-08] MEDS: Simvastatin 40 MG TAB PO SCH (20:18)
[2017-10-08] MEDS: Levemir Flexpen 100 UNITS/ML PEN SC SCH (20:18)
[2017-10-08] MEDS: Acetaminophen 325 MG TAB PO PRN (23:07)
[2017-10-09 05:32] LABS: INR-International Normal Ratio 3.4; Prothrombin Time 35.5 SEC (12.0-14.7)
[2017-10-09 05:51] LABS: Hemoglobin 8.6 g/dL (14.0-18.0); Platelet Count 292 thou/uL (130-400)
[2017-10-09] MEDS: Mometasone/Formoterol 60 PUFF AER INH SCH ×2 (06:05→17:51)
[2017-10-09] MEDS ORDERED: HumaLOG 300 UNITS/3 ML VIAL SC SCH ×3 (06:53→11:53)
--- NOTE | 2017-10-09 07:33 | PRG ---
DATE OF SERVICE: 10/08/2017 SUBJECTIVE: The patient feels somewhat anxious and nervous today, refused to do therapy, states he i s having some difficulty breathing. OBJECTIVE: VITAL SIGNS: Blood pressure is 110/56, pulse 82 and regular. O2 sat 97% on 2 liters. LUNGS: Lungs are clear. CARDIAC: Cardiac examination shows an irregular regular rhythm. SKIN AND EXTREMITIES: Skin and extremities shows only trace edema, no clubbing or cyanosis. Left fo ot is bandaged. There are multiple ecchymoses. LABORATORY: Laboratory shows PT/INR is supratherapeutic at 35 and 3.3. Sodium is 140, potassium 4.4 , chloride 103, bicarbonate 29, BUN 44, creatinine 1.55, which is stable. Accu-Cheks range from 75 i n the morning to 350/46 in the afternoon. BNP yesterday was 810. ASSESSMENT: 1. Anxiety reaction and will give alprazolam and monitor response. 2. Class 4 congestive heart failure, appears to be compensated at this time, but still significantly elevated BNP, but with no peripheral edema or pulmonary edema on exam 3. Atrial fibrillation, status post AV john ablation and placement of biventricular pacemaker with AICD. 4. Excessive anticoagulation and will withhold warfarin. 5. Urinary tract infection responding to Augmentin. PLAN: 1. Alprazolam 0.25 every 6 hours as needed. 2. Continue amiodarone, but hold warfarin. Check PT/INR daily. 3. Continue furosemide 40 daily, carvedilol 3.125 daily, Lisinopril 2.5 daily. 4. Continue Levemir 70 units at night, 10 units at lunch and monitor dose and titrate as needed.
--- NOTE | 2017-10-09 07:36 | PRG ---
DATE OF SERVICE: 10/09/2017 SUBJECTIVE: The patient feels much better today, states he slept somewhat last night with no shortne ss of breath, no nausea or vomiting. He has a good appetite, stating he is ready for therapy today. OBJECTIVE: VITAL SIGNS: His temperature is 97.5, pulse 70, respirations 20, O2 sats 97% on 2 liters, blood pres sure 143/63. LUNGS: Lungs show only a few rales in the bases. CARDIAC: Showed regular rhythm. Pacemaker in place. SKIN AND EXTREMITIES: Skin and extremities show left foot bandaged with trace edema, no clubbing or cyanosis. LABORATORY: Today show Accu-Cheks ranged from 133 yesterday afternoon to 67 this morning, but was 22 4 in the afternoon. ASSESSMENT: 1. Improving diabetic control, but will decrease Levemir at night to 65 units and increase Humalog a t noon to 10 units to hopefully control p.m. glucose. 2. Class 4 congestive heart failure appeared to be stabilizing was stable renal function on 40 mg of Lasix and will repeat basic metabolic profile and BNP in the a.m. 3. Severe deconditioning, appears to be related to improve with therapy and is cooperating. 4. Anxiety neurosis, appears to be improved with alprazolam. We will continue to monitor for sedati on. 5. Atrial fibrillation with rate control and anticoagulation, holding warfarin as INR is still supra therapeutic and most likely due to interaction with other medications and will monitor and decreased dose most likely tomorrow.
[2017-10-09] MEDS: Mupirocin 2% Ointment 22 GM Tube TOP SCH ×3 (08:18→20:25)
[2017-10-09] MEDS: Spironolactone 25 MG TAB PO SCH (08:19)
[2017-10-09] MEDS: Furosemide 40 MG TAB PO SCH (08:19)
[2017-10-09] MEDS: Ferrous Sulfate 325 MG TAB PO SCH ×2 (08:19→17:51)
[2017-10-09] MEDS: Doxycycline 100 MG CAP PO SCH ×2 (08:19→20:24)
[2017-10-09] MEDS: Amiodarone 200 MG TAB PO SCH (08:19)
[2017-10-09] MEDS: Carvedilol 3.125 MG TAB PO SCH ×2 (08:19→17:51)
[2017-10-09] MEDS: Lisinopril 5 MG TAB PO SCH (08:19)
[2017-10-09] MEDS: Polyethylene Glycol 3350 17 GM Packet PO SCH (08:20)
[2017-10-09] MEDS: Stress 600 With Zinc 1 TAB PO SCH (08:20)
[2017-10-09] MEDS: Amoxicillin/Potassium Clav 875 MG TAB PO SCH ×2 (08:20→20:24)
[2017-10-09] MEDS: Ascorbic Acid 500 mg Chewable Tablet PO SCH (08:40)
[2017-10-09] MEDS: HumaLOG 300 UNITS/3 ML VIAL SC SCH (11:30)
[2017-10-09] MEDS: Levemir Flexpen 100 UNITS/ML PEN SC SCH (20:24)
[2017-10-09] MEDS: Simvastatin 40 MG TAB PO SCH (20:25)
[2017-10-09] MEDS: traMADol HCl 50 MG TAB PO PRN (21:38)
[2017-10-09] MEDS: ALPRAZolam 0.25 MG TAB PO PRN (22:44)
[2017-10-10 05:41] LABS: #Basophils 0.1 thou/uL (0.0-0.2); #Eosinphils 0.3 thou/uL (0.0-0.7); #Lymphocytes 1.1 thou/uL (1.20-3.40); #Neutrophils 6.6 thou/uL (1.40-6.50); %Basophils 1.1 % (0.0-1.0); %Eosinophils 3.3 % (0.0-10.0); %Lymphocytes 12.1 % (21.0-51.0); %Monocytes 10.9 % (0.0-10.0); %Neutrophils 72.6 % (42.0-75.0); Hemoglobin 8.6 g/dL (14.0-18.0); Mean Corpuscular HGB CONC 30.1 g/dL (32.0-36.0); Mean Corpuscular Hemoglobin 28.2 pg (27.0-31.0); Mean Corpuscular Volume 93.5 fl (80.0-94.0); Mean Platelet Volume 5.8 fL (7.4-10.4); Platelet Count 304 thou/uL (130-400); RBC Distribution Width 16.1 % (11.5-14.5); Red Blood Cell (RBC) Count 3.03 mill/uL (4.70-6.10); White Blood Cell (WBC) Count 9.1 thou/uL (4.8-10.8)
[2017-10-10 05:44] LABS: INR-International Normal Ratio 3.1; Prothrombin Time 33.1 SEC (12.0-14.7)
[2017-10-10] MEDS: Mometasone/Formoterol 60 PUFF AER INH SCH ×2 (05:48→18:34)
[2017-10-10 05:57] LABS: ALT (SGPT) 19 U/L (8-55); AST (SGOT) 17 U/L (5-34); Albumin 2.8 g/dL (3.4-4.8); Alkaline Phosphatase 85 U/L (40-150); Anion Gap 12 mmol/L (10-20); BUN (Urea Nitrogen) 44 mg/dL (8.4-25.7); Bilirubin, Total 0.8 mg/dL (0.2-1.2); Calc. Creatinine Clearance 55 mL/min (70-130); Calcium 8.8 mg/dL (7.8-10.44); Carbon Dioxide 28 mmol/L (23-31); Chloride 102 mmol/L (98-107); Estimated GFR-MDRD 39; Globulin 2.9 g/dL (2.4-3.5); Glucose 102 mg/dL (83-110); Potassium 5.1 mmol/L (3.5-5.1); Protein, Total 5.7 g/dL (5.8-8.1); Sodium 137 mmol/L (136-145)
[2017-10-10] MEDS: Ferrous Sulfate 325 MG TAB PO SCH ×2 (08:24→18:00)
[2017-10-10] MEDS: Amiodarone 200 MG TAB PO SCH (08:24)
[2017-10-10] MEDS: Stress 600 With Zinc 1 TAB PO SCH (08:24)
[2017-10-10] MEDS: Amoxicillin/Potassium Clav 875 MG TAB PO SCH ×2 (08:24→19:58)
[2017-10-10] MEDS: Spironolactone 25 MG TAB PO SCH (08:24)
[2017-10-10] MEDS: Ascorbic Acid 500 mg Chewable Tablet PO SCH (08:25)
[2017-10-10] MEDS: Mupirocin 2% Ointment 22 GM Tube TOP SCH ×3 (08:25→19:59)
[2017-10-10] MEDS: Furosemide 40 MG TAB PO SCH (08:25)
[2017-10-10] MEDS: Lisinopril 5 MG TAB PO SCH (08:25)
[2017-10-10] MEDS: Carvedilol 3.125 MG TAB PO SCH ×2 (08:25→18:00)
[2017-10-10] MEDS: Polyethylene Glycol 3350 17 GM Packet PO SCH (08:25)
--- NOTE | 2017-10-10 08:50 | PRG ---
DATE OF SERVICE: 10/10/2017 SUBJECTIVE: The patient feels better today, rested through the night with no diarrhea. No shortness of breath. He has no low sugar spells. His only complaint is some cramps in his leg, but has not b een keeping his Podus boot on his left foot or keeping it nonweightbearing. OBJECTIVE: LEFT HEEL: Left heel shows a deep tissue injury progressing secondary to refusal to be offloaded whi le in the bed. LUNGS: Clear. CARDIAC: Showed regular rhythm, no gallops or murmurs. Pacemaker site is healing well. SKIN AND EXTREMITIES: Skin and extremities show no edema with a deep tissue injury of the left heel, no necrosis or eschar at this time. Accu-Cheks reveal good control with range from 93-163. BNP is greatly improved to 510. Renal functi on is stable. Creatinine 1.72 and GFR 39. Sodium 137, potassium 5.1, chloride 102, bicarbonate 28. ASSESSMENT: 1. Stable type 2 diabetes, insulin controlled on routine insulin and Levemir 65 units at night and H umalog 10 units at 11:30 daily. 2. Ischemic cardiomyopathy with a recent run of ventricular tachycardia, status post AV john ablati on and placement of biventricular pacemaker and AICD with no discharges and slowly improving strength . 3. Cardiorenal syndrome, stable on furosemide 40 daily with decreased edema and stable stage 3 chron ic kidney disease. 4. New onset of deep tissue injury during hospitalization, possibly initiated by a fall prior to adm ission, but exacerbated by patient refusing to be offloaded. PLAN: 1. Stressed the patient's need to wear a Podus boot and to be offloaded when not wearing. 2. Continue PT, OT with boot in place. 3. Continue Levemir 65 at night and Humalog 10 units at lunch. 4. Continue furosemide 40 in the a.m. and Spironolactone 25 daily. 5. Continue amoxicillin 875 twice daily for urinary tract infection and discontinue doxycycline.
[2017-10-10] MEDS: ALPRAZolam 0.25 MG TAB PO PRN ×2 (11:33→20:02)
[2017-10-10] MEDS: HumaLOG 300 UNITS/3 ML VIAL SC SCH (11:35)
[2017-10-10] MEDS: Levemir Flexpen 100 UNITS/ML PEN SC SCH (19:58)
[2017-10-10] MEDS: Simvastatin 40 MG TAB PO SCH (20:00)
[2017-10-10] MEDS ORDERED: ALPRAZolam 0.25 MG TAB PO SCH (22:30)
[2017-10-10 22:41] LABS: #Eosinphils 0.2 thou/uL (0.0-0.7); #Lymphocytes 1.2 thou/uL (1.20-3.40); #Monocytes 0.8 thou/uL (0.11-0.59); %Basophils 0.5 % (0.0-1.0); %Eosinophils 2.5 % (0.0-10.0); %Lymphocytes 13.1 % (21.0-51.0); %Monocytes 8.6 % (0.0-10.0); %Neutrophils 75.3 % (42.0-75.0); Hemoglobin 8.2 g/dL (14.0-18.0); Mean Corpuscular HGB CONC 31.1 g/dL (32.0-36.0); Mean Corpuscular Hemoglobin 28.6 pg (27.0-31.0); Mean Corpuscular Volume 91.8 fl (80.0-94.0); Mean Platelet Volume 5.7 fL (7.4-10.4); Platelet Count 321 thou/uL (130-400); RBC Distribution Width 15.6 % (11.5-14.5); Red Blood Cell (RBC) Count 2.88 mill/uL (4.70-6.10); White Blood Cell (WBC) Count 9.2 thou/uL (4.8-10.8)
[2017-10-10 22:59] LABS: Anion Gap 17 mmol/L (10-20); BUN (Urea Nitrogen) 47 mg/dL (8.4-25.7); Calc. Creatinine Clearance 0 mL/min (70-130); Calcium 8.2 mg/dL (7.8-10.44); Carbon Dioxide 25 mmol/L (23-31); Chloride 101 mmol/L (98-107); Estimated GFR-MDRD 35; Glucose 273 mg/dL (83-110); Potassium 6.2 mmol/L (3.5-5.1); Sodium 137 mmol/L (136-145)
[2017-10-11] MEDS: Acetaminophen 325 MG TAB PO PRN (00:24)
[2017-10-11] MEDS: traMADol HCl 50 MG TAB PO PRN ×2 (03:07→21:48)
[2017-10-11 05:17] LABS: Hemoglobin 8.5 g/dL (14.0-18.0); Platelet Count 322 thou/uL (130-400)
[2017-10-11 05:27] LABS: INR-International Normal Ratio 2.8; Prothrombin Time 31.1 SEC (12.0-14.7)
[2017-10-11 05:35] LABS: Anion Gap 15 mmol/L (10-20); BUN (Urea Nitrogen) 50 mg/dL (8.4-25.7); Calc. Creatinine Clearance 52 mL/min (70-130); Calcium 8.7 mg/dL (7.8-10.44); Carbon Dioxide 26 mmol/L (23-31); Chloride 100 mmol/L (98-107); Estimated GFR-MDRD 37; Glucose 204 mg/dL (83-110); Potassium 5.1 mmol/L (3.5-5.1); Sodium 136 mmol/L (136-145)
[2017-10-11] MEDS: Mometasone/Formoterol 60 PUFF AER INH SCH ×2 (05:44→17:57)
[2017-10-11] MEDS: Spironolactone 25 MG TAB PO SCH (08:30)
[2017-10-11] MEDS: Ascorbic Acid 500 mg Chewable Tablet PO SCH (08:30)
[2017-10-11] MEDS: Ferrous Sulfate 325 MG TAB PO SCH ×2 (08:30→16:47)
[2017-10-11] MEDS: Carvedilol 3.125 MG TAB PO SCH ×2 (08:30→16:47)
[2017-10-11] MEDS: Furosemide 40 MG TAB PO SCH (08:30)
[2017-10-11] MEDS: Amoxicillin/Potassium Clav 875 MG TAB PO SCH ×2 (08:30→20:27)
[2017-10-11] MEDS: Stress 600 With Zinc 1 TAB PO SCH (08:30)
[2017-10-11] MEDS: Amiodarone 200 MG TAB PO SCH (08:31)
[2017-10-11] MEDS: Mupirocin 2% Ointment 22 GM Tube TOP SCH ×3 (08:31→20:27)
[2017-10-11] MEDS: Polyethylene Glycol 3350 17 GM Packet PO SCH (08:31)
[2017-10-11] MEDS: Lisinopril 5 MG TAB PO SCH (08:31)
[2017-10-11] MEDS: HumaLOG 300 UNITS/3 ML VIAL SC SCH (12:20)
[2017-10-11] MEDS ORDERED: Warfarin Sodium 5 MG TAB PO SCH ×2 (19:00)
[2017-10-11] MEDS: Levemir Flexpen 100 UNITS/ML PEN SC SCH (20:27)
--- NOTE | 2017-10-11 20:27 | PRG ---
DATE OF SERVICE: 10/11/2017 SUBJECTIVE: The patient feels better today, although did not sleep well through the night and has fe lt weak and jittery. This did improve however with alprazolam. He had been having good control of h is diabetes until today and is unsure exactly what happened. OBJECTIVE: His blood pressure is 120/58, pulse 70, O2 sats 98% on 1 liter. Hematocrit is 26, hemogl obin 8.2, white count 9200. Sodium 136, potassium 5.1, chloride 100, bicarbonate 26, BUN 50, creatin ine 1.81. Accu-Cheks today have been over 200, although previously were under 150 on same doses of m edication. Lactate was normal yesterday at 8.2. PT/INR is back to therapeutic range after being hel d for several days. ASSESSMENT AND PLAN: 1. Atrial fibrillation with atrioventricular john ablation and biventricular pacemaker and automate d implantable cardioverter defibrillator, on amiodarone for rate control and carvedilol 3.125 twice d aily and on warfarin restarted now at 4 mg daily for anticoagulation. 2. Type 2 diabetes with poor control until this hospitalization. Had improved until normal prior to 2 days ago, but now is increased again and we will monitor before titrating doses again and stressed dietary compliance. 3. Urinary tract infection, resolved with Augmentin. 4. Severe anxiety. Controlled with alprazolam. 5. Deep tissue injury of left heel with significant pain on Multi-Podus boot.
[2017-10-11] MEDS: Simvastatin 40 MG TAB PO SCH (20:28)
[2017-10-11] MEDS: ALPRAZolam 0.25 MG TAB PO PRN (20:28)
[2017-10-12] MEDS: Mometasone/Formoterol 60 PUFF AER INH SCH ×2 (05:15→17:53)
[2017-10-12 05:46] LABS: INR-International Normal Ratio 2.6; Prothrombin Time 28.6 SEC (12.0-14.7)
[2017-10-12] MEDS: Carvedilol 3.125 MG TAB PO SCH ×2 (08:31→17:52)
[2017-10-12] MEDS: Ascorbic Acid 500 mg Chewable Tablet PO SCH (08:31)
[2017-10-12] MEDS: Ferrous Sulfate 325 MG TAB PO SCH ×2 (08:31→17:52)
[2017-10-12] MEDS: Spironolactone 25 MG TAB PO SCH (08:32)
[2017-10-12] MEDS: Amiodarone 200 MG TAB PO SCH (08:32)
[2017-10-12] MEDS: Amoxicillin/Potassium Clav 875 MG TAB PO SCH ×2 (08:32→21:20)
[2017-10-12] MEDS: Lisinopril 5 MG TAB PO SCH (08:32)
[2017-10-12] MEDS: Furosemide 40 MG TAB PO SCH (08:32)
[2017-10-12] MEDS: Polyethylene Glycol 3350 17 GM Packet PO SCH (08:33)
[2017-10-12] MEDS: Stress 600 With Zinc 1 TAB PO SCH (08:33)
[2017-10-12] MEDS: Mupirocin 2% Ointment 22 GM Tube TOP SCH ×3 (08:33→21:19)
[2017-10-12] MEDS: traMADol HCl 50 MG TAB PO PRN (10:18)
[2017-10-12] MEDS: HumaLOG 300 UNITS/3 ML VIAL SC SCH (11:28)
[2017-10-12] MEDS ORDERED: Warfarin Sodium 5 MG TAB PO SCH (17:15)
[2017-10-12] MEDS: ALPRAZolam 0.25 MG TAB PO PRN (21:20)
[2017-10-12] MEDS: Levemir Flexpen 100 UNITS/ML PEN SC SCH (21:26)
[2017-10-12] MEDS: Simvastatin 40 MG TAB PO SCH (21:27)
--- NOTE | 2017-10-13 00:50 | PRG ---
DATE OF SERVICE: 10/12/2017 SUBJECTIVE: The patient feels well, resting in bed with decreased foot pain. No shortness of breath , weakness at rest. Has not done therapy today as weekend, but feels he is ready to do more therapy as getting stronger. OBJECTIVE: VITAL SIGNS: Blood pressure 130/75, temperature 97, pulse 70, respirations 20, O2 sat is 96% on [address] LUNGS: Show decreased breath sounds in the bases with a few crackles. CARDIOVASCULAR: Showed an irregularly regular rhythm. SKIN AND EXTREMITIES: Showed diffuse ecchymoses and 1-2+ edema. LABORATORY DATA: Shows Accu-Cheks ranged today from 135-166, GFR 37, creatinine 1.81, and BUN of 50. ASSESSMENT: 1. Atrial fibrillation, status post AV john ablation and placement of a biventricular pacemaker, st able rate of 70. 2. Ischemic cardiomyopathy with systolic heart failure and edema on oral furosemide 40 mg daily. Pe rsistent edema. 3. Cardiorenal syndrome, stable, but fragile, with increased creatinine, with increased furosemide a nd we will continue to monitor closely on this dose. 4. Type 2 diabetes, controlled to goal on Levemir 65 at night and Humalog 10 at lunch. PLAN: 1. Repeat PT/INR in the a.m. and give warfarin as needed to maintain therapeutic anticoagulation. 2. Continue furosemide 40 daily and repeat basic metabolic profile and BNP in the a.m. 3. Continue wound care, right heel wound. 4. Continue Augmentin for urinary tract infection. 5. Stress need for increased PT, OT. 6. Anxiety controlled with alprazolam.
[2017-10-13 05:20] LABS: Hemoglobin 8.6 g/dL (14.0-18.0); Platelet Count 355 thou/uL (130-400)
[2017-10-13 05:29] LABS: INR-International Normal Ratio 2.9; Prothrombin Time 31.3 SEC (12.0-14.7)
[2017-10-13] MEDS: Mometasone/Formoterol 60 PUFF AER INH SCH ×2 (05:44→17:36)
[2017-10-13] MEDS: Amiodarone 200 MG TAB PO SCH (08:18)
[2017-10-13] MEDS: Carvedilol 3.125 MG TAB PO SCH ×2 (08:18→17:35)
[2017-10-13] MEDS: Ferrous Sulfate 325 MG TAB PO SCH ×2 (08:18→17:36)
[2017-10-13] MEDS: Ascorbic Acid 500 mg Chewable Tablet PO SCH (08:18)
[2017-10-13] MEDS: Spironolactone 25 MG TAB PO SCH (08:18)
[2017-10-13] MEDS: Polyethylene Glycol 3350 17 GM Packet PO SCH (08:19)
[2017-10-13] MEDS: Stress 600 With Zinc 1 TAB PO SCH (08:19)
[2017-10-13] MEDS: Lisinopril 5 MG TAB PO SCH (08:19)
[2017-10-13] MEDS: Amoxicillin/Potassium Clav 875 MG TAB PO SCH ×2 (08:19→20:17)
[2017-10-13] MEDS: Furosemide 40 MG TAB PO SCH (08:19)
[2017-10-13] MEDS: Mupirocin 2% Ointment 22 GM Tube TOP SCH ×3 (08:23→20:21)
[2017-10-13] MEDS: HumaLOG 300 UNITS/3 ML VIAL SC SCH (12:43)
[2017-10-13] MEDS: traMADol HCl 50 MG TAB PO PRN ×2 (14:39→20:44)
[2017-10-13] MEDS ORDERED: Warfarin Sodium 2 MG TAB PO SCH (18:15)
--- NOTE | 2017-10-13 19:31 | PRG ---
DATE OF SERVICE: 10/13/2017 SUBJECTIVE: The patient is sitting up in bed, states he is ready for more therapy, feels well with n o shortness of breath, chest pain or palpitation. Did sleep well through the night. In fact, has be en eating well, but his sugar decreased this morning. OBJECTIVE: VITAL SIGNS: His blood pressure is stable at 130/75, temperature is 96, pulse 87, respirations 20, O 2 sats 97% on 1 liter. LUNGS: Show a few rales in the bases. CARDIAC: Shows regular rhythm. No gallops or murmurs. ABDOMEN: Obese and nontender. SKIN AND EXTREMITIES: Show anasarca and 2+ edema, but appears to be improving with diffuse ecchymose s. Left foot is bandaged. ASSESSMENT: 1. Atrial fibrillation with ischemic cardiomyopathy status post atrioventricular john ablation and placement of a biventricular pacemaker AICD with rate increased to 87 today and we will get EKG in th e a.m. if continued elevated. 2. Ischemic cardiomyopathy on furosemide 40 mg daily with persistent edema, but stabilizing blood pr essure and renal function and we will increase to 40 twice daily. 3. Cardiorenal syndrome with stable creatinine on increased furosemide and we will monitor closely a s increased furosemide to twice daily. 4. Type 2 diabetes, had been controlled to goal with exacerbation yesterday, but now low despite con trolled on the diet and we will decrease Levemir to 60 units at night and continue Humalog at lunch. PLAN: 1. Warfarin 4 mg daily. 2. Furosemide 40 twice daily. 3. Basic metabolic profile and BNP in the a.m. 4. Continue on medications for urinary tract infection. 5. Continue PT and OT. 6. Continue alprazolam for anxiety.
[2017-10-13] MEDS: Simvastatin 40 MG TAB PO SCH (20:17)
[2017-10-13] MEDS ORDERED: Levemir Flexpen 100 UNITS/ML PEN SC SCH (21:00)
[2017-10-14] MEDS: traMADol HCl 50 MG TAB PO PRN ×3 (02:15→18:59)
[2017-10-14 05:49] LABS: Anion Gap 12 mmol/L (10-20); BUN (Urea Nitrogen) 44 mg/dL (8.4-25.7); Calc. Creatinine Clearance 62 mL/min (70-130); Calcium 8.5 mg/dL (7.8-10.44); Carbon Dioxide 28 mmol/L (23-31); Chloride 100 mmol/L (98-107); Estimated GFR-MDRD 43; Potassium 4.6 mmol/L (3.5-5.1); Sodium 135 mmol/L (136-145)
[2017-10-14 05:50] LABS: INR-International Normal Ratio 3.3; Prothrombin Time 35.2 SEC (12.0-14.7)
[2017-10-14] MEDS: Mometasone/Formoterol 60 PUFF AER INH SCH ×2 (06:01→17:59)
[2017-10-14 06:04] LABS: Glucose 49 mg/dL (83-110)
[2017-10-14] MEDS: Stress 600 With Zinc 1 TAB PO SCH (08:45)
[2017-10-14] MEDS: Amoxicillin/Potassium Clav 875 MG TAB PO SCH ×2 (08:45→20:01)
[2017-10-14] MEDS: Amiodarone 200 MG TAB PO SCH (08:45)
[2017-10-14] MEDS: Ferrous Sulfate 325 MG TAB PO SCH ×2 (08:45→17:59)
[2017-10-14] MEDS: Carvedilol 3.125 MG TAB PO SCH ×2 (08:45→17:59)
[2017-10-14] MEDS: Ascorbic Acid 500 mg Chewable Tablet PO SCH (08:45)
[2017-10-14] MEDS: Furosemide 40 MG TAB PO SCH ×2 (08:46→13:19)
[2017-10-14] MEDS: Spironolactone 25 MG TAB PO SCH (08:49)
[2017-10-14] MEDS: Mupirocin 2% Ointment 22 GM Tube TOP SCH ×3 (12:07→20:01)
[2017-10-14] MEDS: Lisinopril 5 MG TAB PO SCH (13:10)
[2017-10-14] MEDS: Polyethylene Glycol 3350 17 GM Packet PO SCH (13:11)
[2017-10-14] MEDS: HumaLOG 300 UNITS/3 ML VIAL SC SCH (13:13)
[2017-10-14] MEDS: Acetaminophen 325 MG TAB PO PRN (13:19)
[2017-10-14] MEDS: Levemir Flexpen 100 UNITS/ML PEN SC SCH (19:59)
[2017-10-14] MEDS: Simvastatin 40 MG TAB PO SCH (20:01)
[2017-10-15] MEDS: traMADol HCl 50 MG TAB PO PRN (02:31)
[2017-10-15 05:25] LABS: Hemoglobin 8.8 g/dL (14.0-18.0); Platelet Count 336 thou/uL (130-400)
[2017-10-15] MEDS: Mometasone/Formoterol 60 PUFF AER INH SCH ×2 (05:30→18:12)
[2017-10-15 05:36] LABS: INR-International Normal Ratio 3.4
[2017-10-15] MEDS ORDERED: HumaLOG 300 UNITS/3 ML VIAL SC SCH (06:53)
[2017-10-15] MEDS: Stress 600 With Zinc 1 TAB PO SCH (08:06)
[2017-10-15] MEDS: Amoxicillin/Potassium Clav 875 MG TAB PO SCH ×2 (08:06→20:06)
[2017-10-15] MEDS: Spironolactone 25 MG TAB PO SCH (08:07)
[2017-10-15] MEDS: Ferrous Sulfate 325 MG TAB PO SCH ×2 (08:07→18:12)
[2017-10-15] MEDS: Lisinopril 5 MG TAB PO SCH (08:07)
[2017-10-15] MEDS: Amiodarone 200 MG TAB PO SCH (08:07)
[2017-10-15] MEDS: Polyethylene Glycol 3350 17 GM Packet PO SCH (08:08)
[2017-10-15] MEDS: Ascorbic Acid 500 mg Chewable Tablet PO SCH (08:08)
[2017-10-15] MEDS: Furosemide 40 MG TAB PO SCH ×2 (08:08→14:16)
[2017-10-15] MEDS: Carvedilol 3.125 MG TAB PO SCH ×2 (08:08→18:12)
--- NOTE | 2017-10-15 10:12 | PRG ---
DATE OF SERVICE: 10/14/2017 SUBJECTIVE: The patient feels much better, has been up cooperating with therapy today. He did have some asymptomatic hypoglycemia this morning, but has had no chest pain, shortness of breath. He is h aving decreasing pain in his left foot. OBJECTIVE: VITAL SIGNS: Blood pressure 122/57 decreased to 106/63 with therapy with asymptomatic, pulse is 76, O2 sats 98% on 1 liter. LUNGS: Show good breath sounds with only rare rales in the bases. CARDIAC: Shows regular rhythm. No gallops or murmurs. Pacemaker site is healing well. SKIN AND EXTREMITIES: Show persistent 2+ edema, but appears to be decreasing. Accu-Cheks have range d from 121-234. PT/INR still is supratherapeutic at 3.3. Physical therapy states that the patient d id much better today, walked 60 feet x2 with main complaint of fatigue, was able to do transfers with no difficulty. ASSESSMENT: 1. Class 3 congestive heart failure, improving, status post placement of biventricular pacemaker. 2 . Underlying atrial fibrillation with rate control with AV john ablation and biventricular pacemake r and now on anticoagulation with warfarin being held for the last 2 days after being given 4 mg, bec ause of increased PT/INR at 3.3. 3. Type 2 diabetes, insulin-dependent, very brittle with slight uncontrolled since decreased dose of insulin secondary to hypoglycemia previous day. We will continue to monitor as the patient is ambul ating further. 4. Cardiorenal syndrome with stable creatinine on increased furosemide to 40 mg twice daily with dec reased BNP to 448 from a high of 810 last week and improved renal function with creatinine to 1.59 f rom 1.89 last week and a GFR increased to 43 from a low of 35 last week. PLAN: Continue furosemide 40 twice daily. Continue PT, OT. Continue daily PT/INR and titrate warfa rin to goal of 2-3. Continue lower dose of insulin at 55 units of Levemir at night , but increa se Humalog to 12 units at noon and monitor response.
[2017-10-15] MEDS: Mupirocin 2% Ointment 22 GM Tube TOP SCH ×3 (13:45→20:07)
[2017-10-15] MEDS: ALPRAZolam 0.25 MG TAB PO PRN (18:34)
[2017-10-15] MEDS: Levemir Flexpen 100 UNITS/ML PEN SC SCH (20:06)
[2017-10-15] MEDS: Simvastatin 40 MG TAB PO SCH (20:07)
[2017-10-16] MEDS: Acetaminophen 325 MG TAB PO PRN ×2 (00:52→20:07)
[2017-10-16] MEDS: Mometasone/Formoterol 60 PUFF AER INH SCH ×2 (05:28→18:38)
[2017-10-16 05:30] LABS: INR-International Normal Ratio 3.1; Prothrombin Time 33.5 SEC (12.0-14.7)
[2017-10-16 05:39] LABS: Anion Gap 14 mmol/L (10-20); BUN (Urea Nitrogen) 48 mg/dL (8.4-25.7); Calc. Creatinine Clearance 54 mL/min (70-130); Calcium 8.6 mg/dL (7.8-10.44); Carbon Dioxide 27 mmol/L (23-31); Chloride 97 mmol/L (98-107); Estimated GFR-MDRD 36; Glucose 174 mg/dL (83-110); Potassium 4.6 mmol/L (3.5-5.1); Sodium 133 mmol/L (136-145)
--- NOTE | 2017-10-16 07:14 | PRG ---
DATE OF SERVICE: 10/15/2017 SUBJECTIVE: The patient feels much better, working with therapy today asking when he can be discharg ed home. Hematocrit 28, hemoglobin 8.8, platelet count 336. PT/INR 3.4 on 5 mg on previous order of 4 mg of w arfarin. Accu-Cheks. Will increase glucose to greater than 200 in the afternoon throughout the day. The patient is eating better. OBJECTIVE: VITAL SIGNS: Vital signs show temperature 98, pulse 70, respirations 20, O2 sats 92% on half liter, blood pressure 129/58. Physical therapy states that he is improving daily. Still requires home therapy and may require home O2 and home health. LUNGS: Lungs show increased breath sounds, a few rales in the bases. CARDIAC: Shows regular rhythm. ABDOMEN: Obese and nontender. SKIN AND EXTREMITIES: Show decreasing edema. Scale shows increased weight, although intake and output has been negative for the last 2 days. ASSESSMENT: Improving deconditioning, uncontrolled diabetes, improving class 4 congestive heart fail ure, noncompliance to his salt and fluid restriction. PLAN: Start 1500 mL fluid restriction, increase Levemir to 60 units at night and Humalog to 15 units at lunch. Continue PT, OT. Hold warfarin again today and repeat PT/INR in a.m.
[2017-10-16] MEDS: Mupirocin 2% Ointment 22 GM Tube TOP SCH ×3 (09:00→20:06)
[2017-10-16] MEDS: Stress 600 With Zinc 1 TAB PO SCH (09:57)
[2017-10-16] MEDS: Furosemide 40 MG TAB PO SCH ×2 (09:57→16:26)
[2017-10-16] MEDS: Ferrous Sulfate 325 MG TAB PO SCH ×2 (09:57→16:26)
[2017-10-16] MEDS: Amoxicillin/Potassium Clav 875 MG TAB PO SCH ×2 (09:57→20:05)
[2017-10-16] MEDS: Spironolactone 25 MG TAB PO SCH (09:57)
[2017-10-16] MEDS: Ascorbic Acid 500 mg Chewable Tablet PO SCH (09:57)
[2017-10-16] MEDS: Amiodarone 200 MG TAB PO SCH (09:57)
[2017-10-16] MEDS: Lisinopril 5 MG TAB PO SCH (09:58)
[2017-10-16] MEDS: Carvedilol 3.125 MG TAB PO SCH ×2 (09:58→16:26)
[2017-10-16] MEDS: Polyethylene Glycol 3350 17 GM Packet PO SCH (09:59)
[2017-10-16] MEDS: HumaLOG 300 UNITS/3 ML VIAL SC SCH (13:39)
[2017-10-16] MEDS: Levemir Flexpen 100 UNITS/ML PEN SC SCH (20:06)
[2017-10-16] MEDS: Simvastatin 40 MG TAB PO SCH (20:07)
[2017-10-16] MEDS: ALPRAZolam 0.25 MG TAB PO PRN (23:37)
[2017-10-17] MEDS: Mometasone/Formoterol 60 PUFF AER INH SCH ×2 (05:09→20:04)
[2017-10-17 05:35] LABS: Hemoglobin 8.8 g/dL (14.0-18.0); Platelet Count 345 thou/uL (130-400)
[2017-10-17 05:36] LABS: INR-International Normal Ratio 2.3; Prothrombin Time 26.3 SEC (12.0-14.7)
--- NOTE | 2017-10-17 07:23 | PRG ---
DATE OF SERVICE: 10/16/2017 SUBJECTIVE: The patient feels well, up and about, asking about when he can be discharged home. Deny ing any chest pain or shortness of breath. Has his left heel in a boot. OBJECTIVE: VITAL SIGNS: Temperature is 99.6, pulse 71, respirations 22, O2 sats 96% on room air, blood pressure 132/60. Accu-Cheks range from 174 to 294, low of 81. LUNGS: Lungs are clear. CARDIAC: Shows a regular rhythm. Pacemaker site is healing well. ABDOMEN: Obese, nontender. Intake and output shows weight loss of 4 pounds with a negative I&O consistently of 200-1100. PT and OT state the patient is standby assistance, walked 30-50 feet, was improving. ASSESSMENT: 1. Improving deconditioning with ability to fully maintain ADLs. 2. Class 4 congestive heart failure, improved increased exercise tolerance. 3. Ischemic cardiomyopathy with recurrent falling spells, possibly due to recurrent atrial fibrillat ion with RVO status post AV john ablation and biventricular pacemaker placement. Appears to be impr oving. Increased strength. No further syncopal episodes. 4. Poorly controlled brittle diabetes, improved somewhat in the hospital on compliant diet and will stress to the patient need to comply with the diet at home. 5. Chronic obstructive pulmonary disease and nicotine abuse, still present prior to this admission, will stress abstinence at home. 6. Deep tissue injury of left heel, improving with offloading. PLAN: 1. Continue 59 mL fluid restriction, low salt diet. 2. Continue Levemir 60 units at night, Humalog 15 at lunch. 3. Continue PT, OT. 4. Hold warfarin today. His INR is still 3.1.
[2017-10-17] MEDS: Ascorbic Acid 500 mg Chewable Tablet PO SCH (08:46)
[2017-10-17] MEDS: Carvedilol 3.125 MG TAB PO SCH ×3 (08:46→20:05)
[2017-10-17] MEDS: Ferrous Sulfate 325 MG TAB PO SCH ×2 (08:46→20:04)
[2017-10-17] MEDS: Lisinopril 5 MG TAB PO SCH (08:47)
[2017-10-17] MEDS: Spironolactone 25 MG TAB PO SCH (08:47)
[2017-10-17] MEDS: Furosemide 40 MG TAB PO SCH ×2 (08:47→13:47)
[2017-10-17] MEDS: Amoxicillin/Potassium Clav 875 MG TAB PO SCH ×2 (08:47→19:58)
[2017-10-17] MEDS: Amiodarone 200 MG TAB PO SCH (08:47)
[2017-10-17] MEDS: Polyethylene Glycol 3350 17 GM Packet PO SCH (08:48)
[2017-10-17] MEDS: Stress 600 With Zinc 1 TAB PO SCH (08:48)
[2017-10-17] MEDS: Mupirocin 2% Ointment 22 GM Tube TOP SCH ×3 (08:51→19:59)
[2017-10-17 10:59] VITALS: BMI 31.8
[2017-10-17] MEDS: HumaLOG 300 UNITS/3 ML VIAL SC SCH (11:28)
[2017-10-17] MEDS: traMADol HCl 50 MG TAB PO PRN (12:01)
[2017-10-17] MEDS ORDERED: Warfarin Sodium 3 MG TAB PO SCH (17:00)
[2017-10-17] MEDS ORDERED: Carvedilol 3.125 MG TAB ONE (18:06)
[2017-10-17] MEDS ORDERED: Furosemide 40 MG TAB ONE (18:07)
[2017-10-17] MEDS ORDERED: traMADol HCl 50 MG TAB ONE (18:08)
[2017-10-17] MEDS ORDERED: Warfarin Sodium 3 MG TAB ONE (19:06)
[2017-10-17] MEDS: Levemir Flexpen 100 UNITS/ML PEN SC SCH (19:58)
[2017-10-17] MEDS: Simvastatin 40 MG TAB PO SCH (19:59)
[2017-10-18 05:45] LABS: Prothrombin Time 22.9 SEC (12.0-14.7)
[2017-10-18] MEDS: Mometasone/Formoterol 60 PUFF AER INH SCH (06:40)
[2017-10-18] MEDS: traMADol HCl 50 MG TAB PO PRN (07:43)
[2017-10-18 08:15] VITALS: TEMP 97.7
[2017-10-18] MEDS: Polyethylene Glycol 3350 17 GM Packet PO SCH (08:34)
[2017-10-18] MEDS: Carvedilol 3.125 MG TAB PO SCH ×2 (08:35→15:06)
[2017-10-18] MEDS: Furosemide 40 MG TAB PO SCH ×2 (08:35→13:58)
[2017-10-18] MEDS: Stress 600 With Zinc 1 TAB PO SCH (08:35)
[2017-10-18] MEDS: Ascorbic Acid 500 mg Chewable Tablet PO SCH (08:35)
[2017-10-18] MEDS: Ferrous Sulfate 325 MG TAB PO SCH (08:35)
[2017-10-18] MEDS: Amiodarone 200 MG TAB PO SCH (08:36)
[2017-10-18] MEDS: Lisinopril 5 MG TAB PO SCH (08:36)
[2017-10-18] MEDS: Spironolactone 25 MG TAB PO SCH (08:36)
[2017-10-18] MEDS: Mupirocin 2% Ointment 22 GM Tube TOP SCH ×2 (08:38→15:06)
[2017-10-18] MEDS: Amoxicillin/Potassium Clav 875 MG TAB PO SCH (08:40)
[2017-10-18] MEDS: HumaLOG 300 UNITS/3 ML VIAL SC SCH (11:49)
[2017-10-18 13:06] VITALS: BP 131/75
== END 2017-10-18 16:40 | disposition home health service (06) | DRG 291 ==
LOC: NAV ACUTE 17:52
PROVIDERS: ADMIT Internal Medicine; ATTEND Internal Medicine
DX: I13.0 Hypertensive heart and chronic kidney disease with heart failure and stage 1 through stage 4 chronic kidney disease, or unspecified chronic kidney disease (principal); I50.43 Acute on chronic combined systolic (congestive) and diastolic (congestive) heart failure; I24.8 Other forms of acute ischemic heart disease; N39.0 Urinary tract infection, site not specified; Z48.812 Encounter for surgical aftercare following surgery on the circulatory system; I25.5 Ischemic cardiomyopathy; N18.3 Chronic kidney disease, stage 3 (moderate); E11.22 Type 2 diabetes mellitus with diabetic chronic kidney disease; E11.65 Type 2 diabetes mellitus with hyperglycemia; Z79.4 Long term (current) use of insulin; Z91.14 Patient's other noncompliance with medication regimen; Z91.11 Patient's noncompliance with dietary regimen; Z95.810 Presence of automatic (implantable) cardiac defibrillator; Z95.0 Presence of cardiac pacemaker; Z79.82 Long term (current) use of aspirin; Z79.01 Long term (current) use of anticoagulants; Z95.5 Presence of coronary angioplasty implant and graft; J44.9 Chronic obstructive pulmonary disease, unspecified; F17.210 Nicotine dependence, cigarettes, uncomplicated; E78.5 Hyperlipidemia, unspecified; K59.00 Constipation, unspecified; L89.622 Pressure ulcer of left heel, stage 2; L89.612 Pressure ulcer of right heel, stage 2; I48.91 Unspecified atrial fibrillation; I25.10 Atherosclerotic heart disease of native coronary artery without angina pectoris; D64.9 Anemia, unspecified; F41.9 Anxiety disorder, unspecified; B95.62 Methicillin resistant Staphylococcus aureus infection as the cause of diseases classified elsewhere
CPT/HCPCS: 36415; 36416; 71045; 80048; 80053; 81003; 81015; 82274; 83605; 83880; 85014; 85018; 85025; 85049; 85610; 87070; 87077; 87086; 87186; 87205; 87324; 87449; G8978-GP-CL; G8979-GP-CI; J1815; J7620

== ENCOUNTER 2017-12-17 21:25 | Emergency (ER) | payer BC, MEDICARE ==
[2017-12-17 22:12] LABS: INR-International Normal Ratio 3.4
[2017-12-17 22:15] LABS: #Basophils 0.1 thou/uL (0.0-0.2); #Eosinphils 0.2 thou/uL (0.0-0.7); #Lymphocytes 0.9 thou/uL (1.20-3.40); #Monocytes 0.8 thou/uL (0.11-0.59); #Neutrophils 7.6 thou/uL (1.40-6.50); %Basophils 0.7 % (0.0-1.0); %Eosinophils 2.3 % (0.0-10.0); %Lymphocytes 9.5 % (21.0-51.0); %Monocytes 8.6 % (0.0-10.0); %Neutrophils 78.8 % (42.0-75.0); Hemoglobin 13.2 g/dL (14.0-18.0); Mean Corpuscular Hemoglobin 27.6 pg (27.0-31.0); Mean Corpuscular Volume 86.3 fL (78.0-98.0); Mean Platelet Volume 7.3 fL (7.4-10.4); Platelet Count 239 thou/uL (130-400); RBC Distribution Width 15.7 % (11.5-14.5); Red Blood Cell (RBC) Count 4.79 mill/uL (4.70-6.10); White Blood Cell (WBC) Count 9.6 thou/uL (4.8-10.8)
[2017-12-17 22:19] LABS: ALT (SGPT) 15 U/L (8-55); AST (SGOT) 14 U/L (5-34); Albumin 3.8 g/dL (3.4-4.8); Alkaline Phosphatase 132 U/L (40-150); Anion Gap 18 mmol/L (10-20); BUN (Urea Nitrogen) 57 mg/dL (8.4-25.7); Bilirubin, Total 0.6 mg/dL (0.2-1.2); Calc. Creatinine Clearance 0 mL/min (70-130); Calcium 9.7 mg/dL (7.8-10.44); Carbon Dioxide 26 mmol/L (23-31); Chloride 92 mmol/L (98-107); Digoxin Less than 0.15 ng/mL (0.8-2.0); Estimated GFR-MDRD 17; Globulin 3.4 g/dL (2.4-3.5); Glucose 383 mg/dL (83-110); Potassium 5.8 mmol/L (3.5-5.1); Protein, Total 7.2 g/dL (5.8-8.1); Sodium 130 mmol/L (136-145)
[2017-12-17] MEDS ORDERED: Insulin Regular 300 UNITS/3 ML VIAL ONE (23:06)
== END 2017-12-17 23:27 | disposition home or self-care (01) ==
LOC: NAV ERS 21:25
DX: I12.0 Hypertensive chronic kidney disease with stage 5 chronic kidney disease or end stage renal disease (principal); N18.6 End stage renal disease; J44.9 Chronic obstructive pulmonary disease, unspecified; E87.5 Hyperkalemia; E11.65 Type 2 diabetes mellitus with hyperglycemia; E11.22 Type 2 diabetes mellitus with diabetic chronic kidney disease; I25.2 Old myocardial infarction; I48.91 Unspecified atrial fibrillation; E78.5 Hyperlipidemia, unspecified; Z86.73 Personal history of transient ischemic attack (TIA), and cerebral infarction without residual deficits; F17.210 Nicotine dependence, cigarettes, uncomplicated; Z79.899 Other long term (current) drug therapy; Z79.82 Long term (current) use of aspirin; Z79.01 Long term (current) use of anticoagulants
CPT/HCPCS: 80053; 80162; 82010; 85025; 85610; 87081; 87430; 96374; J1815